=== PATIENT | male | born 1990 | race African-American/Black ===

== ENCOUNTER 2022-12-09 10:32 | Outpatient (CLI) | payer BC, SELFPAY ==
--- NOTE | ~2022-12-09 | US_ITS ---
US scrotum doppler INDICATION: Possible hernia TECHNIQUE: Testicular sonogram utilizing grayscale and color Doppler FINDINGS: The testes are normal in size and appearance. No focal lesions are seen. The right testes measures 3.4 x 1.6 x 2.4 cm centimeters, and the left testis measures 3 x 1.7 x 2.4 cm cm. There is n ormal vascular flow to both testes. The right and left epididymides appear normal. There is no varicocele or hydrocele. IMPRESSION: 1. NORMAL TESTICULAR ULTRASOUND. Reviewed, dictated and finalized at location []
[2022-12-09 13:12] LABS: Prostate Specific Antigen 0.9 ng/mL (< OR = 4.0)
== END 2022-12-09 10:33 | disposition home or self-care (01) ==
PROVIDERS: PCP Family Medicine; Visit Provider Nurse Practitioner Family
DX: N50.89 Other specified disorders of the male genital organs (principal); Z80.42 Family history of malignant neoplasm of prostate
CPT/HCPCS: 36415; 76870; 84153; 93976

== ENCOUNTER 2024-09-15 09:09 | Outpatient (CLI) | payer OTHER, SELFPAY ==
--- NOTE | ~2024-09-15 | XR_ITS ---
PA, oblique, and lateral views of the right thumb CLINICAL HISTORY: Pain FINDINGS: There is minimally displaced fracture of the distal tuft of the distal phalanx of the thumb . No other fracture or dislocation seen. There is overlying soft tissue swelling. IMPRESSION: Minimally displaced fracture the distal tuft of the distal phalanx of the thumb. Overlying soft tissue swelling/laceration. Reviewed, dictated and finalized at location . IMPRESSION: Minimally displaced fracture the distal tuft of the distal phalanx of the thumb . Overlying soft tissue swelling/laceration.
== END 2024-09-15 09:10 | disposition home or self-care (01) ==
PROVIDERS: PCP Internal Medicine Endocrinology, Diabetes & Metabolism; Visit Provider Plastic Surgery
DX: S62.521A Displaced fracture of distal phalanx of right thumb, initial encounter for closed fracture (principal); X58.XXXA Exposure to other specified factors, initial encounter
CPT/HCPCS: 73140